=== PATIENT | female | born 1995 | race American Indian/Alaskan Native ===

== ENCOUNTER 2017-06-10 13:28 | Emergency (ER) | payer SELFPAY ==
[2017-06-10 13:41] VITALS: BP 112/75
--- NOTE | 2017-06-10 15:33 | Emergency Department Report ---
HPI - General Chief Complaint: Upper Respiratory Infection Time Seen by Provider: 06/10/17 15:06 - HPI HPI: Patient is a 22-year-old female presents to ED complaining of sore throat, runny nose, coughing and nasal congestion for the past 3 days. She states that she does not recall being around any sick contacts. Patient states throat pain is a pain worsened with swallowing. She states she had a fever this morning, but denies nausea vomiting, abdominal pain, chest pain, shortness of breath, dizziness, diarrhea or constipation ED Past Medical Hx - Past Medical History Previous Medical History?: No Additional medical history: ovarian cysts. hypoglycemia - Surgical History Additional Surgical History: laparoscopic x 3 for Ovarian cyst. d & c - Social History Smoking Status: Current Every Day Smoker Substance Use Type: Alcohol - Medications Home Medications: Home Medications Medication Instructions Recorded Confirmed Last Taken Type Amoxicillin/K Clav Tab [Augmentin 1 each PO BID #20 tablet 06/10/17 Unknown Rx 875MG TAB] Ibuprofen [Motrin 800 MG tab] 800 mg PO TID #30 tablet 06/10/17 Unknown Rx Nystas/Diphen/Xyl Visc/Mylanta 15 ml PO TID #60 ml 06/10/17 Unknown Rx [Magic Mouthwash] guaiFENesin [Mucinex] 600 mg PO BID #20 tab.er.12h 06/10/17 Unknown Rx ED Review of Systems ROS: Stated complaint: HEADACHE,FEVER,ABDOMINAL PAIN Other details as noted in HPI Constitutional: denies: chills, fever Eyes: denies: eye pain, eye discharge, vision change ENT: ear pain, throat pain, congestion. denies: dental pain Respiratory: denies: cough, shortness of breath, wheezing Cardiovascular: denies: chest pain, palpitations Endocrine: no symptoms reported Gastrointestinal: denies: abdominal pain, nausea, diarrhea Genitourinary: denies: urgency, dysuria, discharge Musculoskeletal: denies: back pain, joint swelling, arthralgia Skin: denies: rash, lesions, pruritus Neurological: denies: headache, weakness, paresthesias Psychiatric: denies: anxiety, depression Hematological/Lymphatic: denies: easy bleeding, easy bruising Physical Exam - Physical Exam Vital Signs: Vital Signs 06/10/17 13:34 Temperature 98.4 F Pulse Rate 99 H Respiratory 16 Rate Blood Pressure 112/75 O2 Sat by Pulse 96 Oximetry Physical Exam: GENERAL: Alert and oriented x3, no apparent distress, Normal Gait, atraumatic. HEAD: Head is normocephalic and a-traumatic. EYES: Extra ocular muscles are intact. Pupils are equal, round, and reactive to light and accommodation. EARS: symetrical, atraumatic, non tender, ear canal clear and moderate cerumen, tympanic membrance non inflamed but serous fluid seen. Tympanic membrane bilaterally. gross auditory nml bilaterally. NOSE: Nose symetrical, Nontender,Nares appeared normal. Maxillary and frontal sinus tenderness MOUTH:Mouth is well hydrated and without lesions. Tonsils nonerythematous or swollen, Uvula midline, Tongue not elevated. Mucous membranes are moist. Posterior pharynx clear, no exudate or lesions. Patent airways. NECK: Supple. Non edematous, No lymphadenopathy LUNGS: Symetrical with respiration, No wheezing, no rales or crackles, CTAB. HEART: S1, S2 present, regular rate and rhythm without murmur, no rubs, no gallops. Non tender to palpation SKIN: Warm and dry, No lesions, No ulceration or induration present. ED Course Vital Signs 06/10/17 13:34 Temperature 98.4 F Pulse Rate 99 H Respiratory 16 Rate Blood Pressure 112/75 O2 Sat by Pulse 96 Oximetry ED Medical Decision Making - Medical Decision Making 22-year-old female presents with sinusitis ED Course: Patient received Augmentin and Motrin ED. I discussed the patient to take medication as prescribed. I discussed the patient to follow up with the primary care physician Patient had no respiratory distress, signs are normal. She is alert and oriented Critical care attestation.: If time is entered above; I have spent that time in minutes in the direct care of this critically ill patient, excluding procedure time. ED Disposition Clinical Impression: Sinusitis, acute Qualifiers: Sinusitis location: frontal Recurrence: non-recurrent Qualified Code(s): J01.10 - Acute frontal sinusitis, unspecified Disposition: TO HOME OR SELFCARE Is pt being admited?: No Does the pt Need Aspirin: No Condition: Stable Instructions: Sinusitis (ED), Acute Bacterial Rhinosinusitis (ED), Upper Respiratory Infection (ED) Additional Instructions: Make sure to follow up with the primary care physician as discussed. Take all your medications as you've been prescribed. If you have any worsening symptoms or develop new symptoms please return to ED immediately. Prescriptions: Amoxicillin/K Clav Tab [Augmentin 875MG TAB] 1 each PO BID #20 tablet guaiFENesin [Mucinex] 600 mg PO BID #20 tab.er.12h Ibuprofen [Motrin 800 MG tab] 800 mg PO TID #30 tablet Nystas/Diphen/Xyl Visc/Mylanta [Magic Mouthwash] 15 ml PO TID #60 ml Referrals: PRIMARY CARE, [Primary Care Provider] - 3-5 Days [facility] [Outside] - 3-5 Days [facility] [Outside] - 3-5 Days [facility] [Outside] - 3-5 Days Forms: Work/School Release Form(ED) Time of Disposition: 15:46
[2017-06-10] MEDS ORDERED: MOTRIN PO ONE (15:36)
[2017-06-10] MEDS ORDERED: AUGMENTIN 875 MG PO ONE (15:36)
== END 2017-06-10 16:45 | disposition home or self-care (01) ==
LOC: ED 13:28
DX: J01.90 Acute sinusitis, unspecified (principal); F17.200 Nicotine dependence, unspecified, uncomplicated
CPT/HCPCS: 99282